=== PATIENT | female | born 1960 | race Caucasian/White ===

== ENCOUNTER 2017-11-25 13:57 | Emergency (ER) | payer MEDICAID ==
[~2017-11-25] VITALS: Ht 160 cm; Wt 92.8 kg
[~2017-11-25 13:57] MED LIST: ACET325T21 PO; ALBU6.7H IH; FAMO-79 PO; FLUT16SP NAS; GUAI-103 PO; LEVO750T26 PO; LORA-446 PO; NAPR-685 PO; NICO-486 TD; PRED10TA14 PO; TIOT18CA INH
[2017-11-25 14:02] VITALS: BP 131/75
[2017-11-25 15:28] LABS: MICROSCOPIC INDICATED
[2017-11-25 16:03] LABS: CULTURE INDICATED? NO
== END 2017-11-25 16:10 | disposition home or self-care (01) ==
LOC: ED 16:00
DX: L20.9 Atopic dermatitis, unspecified (principal); J44.9 Chronic obstructive pulmonary disease, unspecified
CPT/HCPCS: 81001; 99283

== ENCOUNTER 2018-05-05 10:45 | Emergency (ER) | payer MEDICAID ==
[~2018-05-05] VITALS: Ht 160 cm; Wt 84.0 kg
[2018-05-05] MEDS ORDERED: ALBUTEROL/IPRATROPIUM 2.5MG/0.5MG, 3 ML NPPB ONE (11:30)
[2018-05-05] MEDS ORDERED: methylPREDNISolone SOD SUCC 125 MG/2 ML IVP ONE (11:30)
[2018-05-05 11:58] LABS: BASOPHILS # (AUTO) 0.03 x10^3/uL (0-0.1); BASOPHILS % (AUTO) 0 % (0-1); EOSINOPHILS # (AUTO) 0.03 x10^3/uL (0-0.4); EOSINOPHILS % (AUTO) 0 % (1-7); LYMPHOCYTES # (AUTO) 1.77 x10^3/uL (1-3.4); LYMPHOCYTES % (AUTO) 21 % (22-44); MD NO; MEAN CORPUSCULAR HEMOGLOBIN 31.4 pg (27.0-34.8); MEAN CORPUSCULAR HGB CONC 33.5 g/dL (32.4-35.8); MEAN CORPUSCULAR VOLUME 93.8 fL (80-100); MEAN PLATELET VOLUME 7.9 fL (7.4-10.4); MONOCYTES # (AUTO) 0.38 x10^3/uL (0.2-0.8); MONOCYTES % (AUTO) 5 % (2-9); NEUTROPHILS # (AUTO) 6.31 x10^3/uL (1.8-6.8); NEUTROPHILS % (AUTO) 74 % (42-75); PLATELET COUNT 194 x10^3/uL (130-400); RED BLOOD COUNT 4.15 x10^6/uL (3.82-5.3); RED CELL DISTRIBUTION WIDTH 14.8 % (9.6-15.2)
[2018-05-05] MEDS ORDERED: methylPREDNISolone SOD SUCC 125 MG/2 ML ONE (12:03)
[2018-05-05 12:10] LABS: ALBUMIN 3.4 g/dL (3.4-5.0); ANION GAP 2 mmol/L (5-15); CALCIUM 8.2 mg/dL (8.5-10.1); CHLORIDE 108 mmol/L (98-107); CREATININE 0.52 mg/dL (0.55-1.02)
[2018-05-05 12:14] LABS: ALANINE AMINOTRANSFERASE 27 U/L (12-78); ALKALINE PHOSPHATASE 68 U/L (45-117); BILIRUBIN,TOTAL 0.4 mg/dL (0.2-1.0); TOTAL PROTEIN 6.6 g/dL (6.4-8.2); TROPONIN I < 0.015 ng/mL (0.000-0.045)
[2018-05-05] MEDS ORDERED: GABAPENTIN (12:26)
[2018-05-05] MEDS ORDERED: morphine SULFATE 10 MG/ML, 1ML IVPush ONE (12:30)
[2018-05-05] MEDS ORDERED: IBUPROFEN 600 MG TABLET ONE (13:26)
[2018-05-05 13:27] VITALS: BP 111/48
[2018-05-05] MEDS ORDERED: IBUPROFEN 200 MG TABLET PO ONE (13:30)
== END 2018-05-05 14:08 | disposition home or self-care (01) ==
LOC: ED 13:30
DX: J15.9 Unspecified bacterial pneumonia (principal); F11.20 Opioid dependence, uncomplicated; F17.210 Nicotine dependence, cigarettes, uncomplicated; J44.9 Chronic obstructive pulmonary disease, unspecified
CPT/HCPCS: 36415; 71045; 80053; 84484; 85025; 93005; 94640; 96374; 99284; 99406; J2930; J7620

== ENCOUNTER 2018-08-07 11:47 | Emergency (ER) | payer MEDICAID ==
[~2018-08-07] VITALS: Ht 160 cm; Wt 77.5 kg
[~2018-08-07 11:47] MED LIST changes: +GABAPENTIN
[2018-08-07 12:03] VITALS: BP 106/74
[2018-08-07] MEDS ORDERED: ALBUTEROL/IPRATROPIUM 2.5MG/0.5MG, 3 ML ONE (12:39)
[2018-08-07] MEDS: ALBUTEROL/IPRATROPIUM 2.5MG/0.5MG, 3 ML NPPB SCH ×2 (12:43→12:45)
--- NOTE | 2018-08-07 13:25 | NUR ---
PT ASKING NUMEROUS TIMES ABOUT HOW LONG THIS IS GOING TO TAKE. PT EDUCATED ON IMAGING RESULTS THAT ARE NOT IN. PT STATES "I HAVE BEEN IN THIS ROOM FOR TOO LONG." PT EDUCATED THAT SHE CAN LEAVE AMA BUT WILL NOT FIND THE ANSWERS SHE CAME FOR. PT IS OBSERVED PACING THE ROOM AND COMING INTO THE HALLWAY MULTIPLE TIMES. PT REDIRECTED BACK TO ROOM. PT EDUCATED AGAIN THAT WE ARE AWAITING RESULTS AND TO PLEASE BE PATIENT.
[2018-08-07 14:11] LABS: BASOPHILS # (AUTO) 0.05 x10^3/uL (0-0.1); BASOPHILS % (AUTO) 1 % (0-1); EOSINOPHILS # (AUTO) 0.02 x10^3/uL (0-0.4); EOSINOPHILS % (AUTO) 0 % (1-7); LYMPHOCYTES # (AUTO) 3.29 x10^3/uL (1-3.4); LYMPHOCYTES % (AUTO) 32 % (22-44); MD NO; MEAN CORPUSCULAR HEMOGLOBIN 30.9 pg (27.0-34.8); MEAN CORPUSCULAR VOLUME 93.8 fL (80-100); MEAN PLATELET VOLUME 7.7 fL (7.4-10.4); MONOCYTES # (AUTO) 0.68 x10^3/uL (0.2-0.8); MONOCYTES % (AUTO) 7 % (2-9); NEUTROPHILS # (AUTO) 6.13 x10^3/uL (1.8-6.8); NEUTROPHILS % (AUTO) 60 % (42-75); PLATELET COUNT 228 x10^3/uL (130-400); RED BLOOD COUNT 4.82 x10^6/uL (3.82-5.3); RED CELL DISTRIBUTION WIDTH 14.4 % (9.6-15.2)
[2018-08-07 14:22] LABS: ALBUMIN 3.7 g/dL (3.4-5.0); ANION GAP 4 mmol/L (5-15); CALCIUM 8.9 mg/dL (8.5-10.1); CHLORIDE 107 mmol/L (98-107); CREATININE 0.69 mg/dL (0.55-1.02)
--- NOTE | 2018-08-07 15:17 | NUR ---
SPOKE WITH CT. INFORMED SETTING UP FOR CT NOW
[2018-08-07] MEDS ORDERED: OMNIPAQUE 350 MG/ML, 75ML BOTTLE ONE (15:43)
== END 2018-08-07 16:26 | disposition home or self-care (01) ==
LOC: ED 16:20
DX: J44.9 Chronic obstructive pulmonary disease, unspecified (principal); J20.9 Acute bronchitis, unspecified; D35.01 Benign neoplasm of right adrenal gland; Z72.9 Problem related to lifestyle, unspecified
CPT/HCPCS: 36415; 71046; 71260; 80048; 82040; 85025; 93005; 94640; 99284; J7512; J7620; Q9967

== ENCOUNTER 2018-09-05 05:18 | Emergency (ER) | payer MEDICAID ==
[~2018-09-05] VITALS: Ht 160 cm; Wt 75.9 kg
[2018-09-05 07:38] VITALS: BP 111/53
--- NOTE | 2018-09-05 07:38 | NUR ---
CHECKED BS 81 PT STATED IT WAS LOW. GIVEN MEAL. PT READY FOR DC. AMBULATORY
== END 2018-09-05 07:41 | disposition home or self-care (01) ==
LOC: ED 06:20
DX: S22.32XA Fracture of one rib, left side, initial encounter for closed fracture (principal); J44.9 Chronic obstructive pulmonary disease, unspecified; Y04.8XXA Assault by other bodily force, initial encounter; Y93.89 Activity, other specified; Y92.009 Unspecified place in unspecified non-institutional (private) residence as the place of occurrence of the external cause; Y99.8 Other external cause status
CPT/HCPCS: 82962; 99283

== ENCOUNTER 2018-09-11 01:44 | Emergency (ER) | payer MEDICAID ==
[~2018-09-11] VITALS: Ht 160 cm; Wt 76.4 kg
[2018-09-11] MEDS ORDERED: ALBUTEROL/IPRATROPIUM 2.5MG/0.5MG, 3 ML ONE (02:23)
[2018-09-11] MEDS ORDERED: KETOROLAC 30 MG/1 ML IM ONE (02:30)
[2018-09-11] MEDS ORDERED: ALBUTEROL/IPRATROPIUM 2.5MG/0.5MG, 3 ML NPPB ONE (02:30)
--- NOTE | 2018-09-11 02:30 | NUR ---
DR. VILLARREAL IN TO EVAL PT. AND DISCUSS FURTHER POC; [place] HAD BEEN IN EARLIER. PT. WAS OUT OF ROOM FOR IMAGING WHEN THIS RN ATTEMPTED TO ASSESS PT.
[2018-09-11] MEDS ORDERED: KETOROLAC 30 MG/1 ML ONE (02:36)
--- NOTE | 2018-09-11 02:47 | NUR ---
PT. HAS BEEN MEDICATED PER AUG. TO X-RAY VIA [facility]. PT. HAD PREVIOUSLY BEEN IN BR WHEN THIS RN WENT IN TO ASSESS NOT IMAGING.
[2018-09-11] MEDS ORDERED: DEXAMETHASONE 4 MG TABLET ONE (03:15)
--- NOTE | 2018-09-11 03:27 | NUR ---
PT. MEDICATED PER AUG. IS TEACHING COMPLETED AND PT. ABLE TO DEMONSTRATE PROPER USE OF THIS. [place] IN TO DISCUSS RESULTS WITH PT.
[2018-09-11] MEDS ORDERED: DEXAMETHASONE 4 MG TABLET PO ONE (03:30)
[2018-09-11 03:45] VITALS: BP 113/70
== END 2018-09-11 03:50 | disposition home or self-care (01) ==
LOC: ED 03:44
DX: S22.32XA Fracture of one rib, left side, initial encounter for closed fracture (principal); J44.9 Chronic obstructive pulmonary disease, unspecified; F17.200 Nicotine dependence, unspecified, uncomplicated; G89.29 Other chronic pain; Y04.0XXA Assault by unarmed brawl or fight, initial encounter; Y93.89 Activity, other specified; Y92.89 Other specified places as the place of occurrence of the external cause; Y99.8 Other external cause status
CPT/HCPCS: 71046; 96372; 99283; J1885; J7620

== ENCOUNTER 2018-09-17 07:48 | Emergency (ER) | payer MEDICAID ==
[~2018-09-17] VITALS: Ht 160 cm; Wt 74.0 kg
[2018-09-17 07:52] VITALS: BP 138/80
[2018-09-17] MEDS ORDERED: KETOROLAC 30 MG/1 ML IM ONE (08:30)
--- NOTE | 2018-09-17 08:35 | NUR ---
First contact w/ pt: while checking in ambulance across the welch, pt began screaming "nurse, [facility]!" Responded to room & pt stated, " I know you heard me, I've been asking for help for an hour!" Asked how I could help her & she stated she needed help up. I asked if she wanted to sit up in bed or help to bathroom. Replied, "What do you think you fucking bitch?". I told pt that it is unacceptable to yell or curse at me. She stated she was being ignored & nobody here cared about her. Assured her we care but have to also attend to other patients. Sat up nearly unassisted & walked unassisted to restroom.
[2018-09-17] MEDS ORDERED: KETOROLAC 30 MG/1 ML ONE (08:43)
--- NOTE | 2018-09-17 08:52 | NUR ---
PHILIPPE RN NOTE: PATIENT WOULD LIKE TO HAVE MEDICATION ADMIN HERE FOR CONSTIPATION. MD CHAVEZ AWARE AND MAG CITRATE TO GIVEN PRIOR TO DISCHARGE
[2018-09-17] MEDS ORDERED: MAGNESIUM CITRATE 300ML ORAL SOL PO ONE (09:00)
[2018-09-17] MEDS ORDERED: MAGNESIUM CITRATE 300ML ORAL SOL ONE ×2 (09:03→09:27)
--- NOTE | 2018-09-17 09:49 | NUR ---
This nurse in to discharge with security standby due to aggressive behavior from patient.
== END 2018-09-17 09:51 | disposition home or self-care (01) ==
LOC: ED 09:28
DX: S22.32XA Fracture of one rib, left side, initial encounter for closed fracture (principal); J44.9 Chronic obstructive pulmonary disease, unspecified; X58.XXXA Exposure to other specified factors, initial encounter; Y93.89 Activity, other specified; Y92.89 Other specified places as the place of occurrence of the external cause; Y99.8 Other external cause status
CPT/HCPCS: 96372; 99283; J1885

== ENCOUNTER 2018-09-21 19:40 | Emergency (ER) | payer MEDICAID ==
[~2018-09-21] VITALS: Ht 160 cm; Wt 76.3 kg
[2018-09-21 19:48] VITALS: BP 125/74
--- NOTE | 2018-09-21 19:56 | NUR ---
Pt ambulated to room with EDT.
[2018-09-21] MEDS ORDERED: LIDOCAINE-MPF 1%, 5ML INFIL ONE (20:00)
--- NOTE | 2018-09-21 20:08 | NUR ---
Pt back to room from imaging.
[2018-09-21] MEDS ORDERED: LIDOCAINE-MPF 1%, 5ML ONE (20:13)
--- NOTE | 2018-09-21 20:14 | NUR ---
Lab at bedside.
--- NOTE | 2018-09-21 20:17 | NUR ---
Dr. Angulo at bedside to evaluate pt. Pt c/o back spasms "mostly at night," abdominal pain/constipation, and right middle finger pain/swelling.
[2018-09-21 20:21] LABS: BASOPHILS % (AUTO) 1 % (0-1); EOSINOPHILS # (AUTO) 0.43 x10^3/uL (0-0.4); EOSINOPHILS % (AUTO) 4 % (1-7); LYMPHOCYTES # (AUTO) 3.58 x10^3/uL (1-3.4); LYMPHOCYTES % (AUTO) 33 % (22-44); MD NO; MEAN CORPUSCULAR HEMOGLOBIN 32.1 pg (27.0-34.8); MEAN CORPUSCULAR VOLUME 94.5 fL (80-100); MEAN PLATELET VOLUME 7.1 fL (7.4-10.4); MONOCYTES # (AUTO) 0.73 x10^3/uL (0.2-0.8); MONOCYTES % (AUTO) 7 % (2-9); NEUTROPHILS # (AUTO) 5.94 x10^3/uL (1.8-6.8); NEUTROPHILS % (AUTO) 55 % (42-75); PLATELET COUNT 265 x10^3/uL (130-400); RED BLOOD COUNT 4.19 x10^6/uL (3.82-5.3); RED CELL DISTRIBUTION WIDTH 14.7 % (9.6-15.2)
--- NOTE | 2018-09-21 20:22 | NUR ---
Pt ambulated to bathroom, no assistance required. Urine sample requested after pt educated on proper technique for clean catch sample.
[2018-09-21 20:33] LABS: ALANINE AMINOTRANSFERASE 22 U/L (12-78); ALBUMIN 3.6 g/dL (3.4-5.0); ANION GAP 4 mmol/L (5-15); CALCIUM 8.7 mg/dL (8.5-10.1); CHLORIDE 108 mmol/L (98-107); CREATININE 0.63 mg/dL (0.55-1.02)
[2018-09-21] MEDS ORDERED: CYCLOBENZAPRINE 10 MG TABLET PO STA (20:34)
[2018-09-21 20:35] LABS: ALKALINE PHOSPHATASE 89 U/L (45-117); BILIRUBIN,TOTAL 0.3 mg/dL (0.2-1.0); TOTAL PROTEIN 6.6 g/dL (6.4-8.2)
[2018-09-21] MEDS ORDERED: KETOROLAC 30 MG/1 ML ONE (20:41)
[2018-09-21] MEDS ORDERED: CYCLOBENZAPRINE 10 MG TABLET ONE (20:41)
[2018-09-21 20:44] LABS: MICROSCOPIC AUTO
[2018-09-21 20:46] LABS: CULTURE INDICATED? NO
--- NOTE | 2018-09-21 20:52 | NUR ---
PT MEDICATED ORDERED. MIKAEL PAC AT BEDSIDE FOR I+D.
[2018-09-21] MEDS ORDERED: KETOROLAC 30 MG/1 ML IM ONE (21:00)
--- NOTE | 2018-09-21 21:12 | NUR ---
Dr. Angulo at bedside to discuss ED findings and POC.
== END 2018-09-21 21:54 | disposition home or self-care (01) ==
LOC: ED 20:52
DX: S22.32XA Fracture of one rib, left side, initial encounter for closed fracture (principal); L03.011 Cellulitis of right finger; K59.00 Constipation, unspecified; E11.9 Type 2 diabetes mellitus without complications; J44.9 Chronic obstructive pulmonary disease, unspecified; X58.XXXA Exposure to other specified factors, initial encounter; Y93.89 Activity, other specified; Y92.89 Other specified places as the place of occurrence of the external cause; Y99.8 Other external cause status
CPT/HCPCS: 10060; 36415; 74021; 80053; 81001; 85025; 96372; 99284; J1885

== ENCOUNTER → 2018-10-01 | Outpatient (CLI) | payer MEDICAID ==
[~2018-10-01] MED LIST changes: +FENTANYL PF 100 MCG/2ML ONE; +FLUMAZENIL 0.1 MG/1 ML, 5ML ONE; +MIDAZOLAM 1 MG/ML, 5ML ONE; +NALOXONE 1 MG/ML, 2ML ONE
== END | disposition home or self-care (01) ==
LOC: RAD 13:46
PROVIDERS: ATTEND Orthopaedic Surgery
DX: M75.41 Impingement syndrome of right shoulder (principal); M75.51 Bursitis of right shoulder
CPT/HCPCS: 73221; 99156; 99157; J2250; J3010; J2310

== ENCOUNTER 2018-10-16 02:01 | Emergency (ER) | payer MEDICAID ==
[~2018-10-16] VITALS: Ht 160 cm; Wt 75.6 kg
[~2018-10-16 02:01] MED LIST changes: -FENTANYL PF 100 MCG/2ML ONE; -FLUMAZENIL 0.1 MG/1 ML, 5ML ONE; -MIDAZOLAM 1 MG/ML, 5ML ONE; -NALOXONE 1 MG/ML, 2ML ONE
--- NOTE | 2018-10-16 02:33 | NUR ---
pt called to room from lobby
[2018-10-16 02:34] VITALS: BP 162/110
--- NOTE | 2018-10-16 02:35 | NUR ---
Victor M hernández in ED - 10/16/18 at [address] MUNGUIA AT BED SIDE GIVEN POC WILL GIVE BP MED THEN PT WILL FOLLOW UP PCP FOR FURTHER CHECK UP NO BLEEDING NOTED
--- NOTE | 2018-10-16 02:40 | NUR ---
BACK PAIN CANT SLEEP TONIGHT PER TRIAGE NOTE MAGNOLIA BERNARDO AT BED SIDE
[2018-10-16] MEDS ORDERED: KETOROLAC 30 MG/1 ML ONE (02:49)
[2018-10-16] MEDS ORDERED: METHOCARBAMOL 750 MG TABLET ONE (02:49)
[2018-10-16] MEDS ORDERED: KETOROLAC 30 MG/1 ML IM ONE (03:00)
[2018-10-16] MEDS ORDERED: METHOCARBAMOL 750 MG TABLET PO ONE (03:00)
== END 2018-10-16 03:43 | disposition home or self-care (01) ==
LOC: ED 03:00
DX: M54.6 Pain in thoracic spine (principal); Z72.6 Gambling and betting; E11.9 Type 2 diabetes mellitus without complications; J44.9 Chronic obstructive pulmonary disease, unspecified
CPT/HCPCS: 96372; 99283; J1885

== ENCOUNTER 2018-11-08 10:21 | Emergency (ER) | payer MEDICAID ==
[~2018-11-08] VITALS: Ht 160 cm; Wt 75.1 kg
--- NOTE | 2018-11-08 11:13 | NUR ---
PT ASSISTED TO BR, URINE COLLECTED/ORDERED AND SENT TO LAB. PT ASSISTED IN GETTING INTO GOWN, WARM BLANKET PROVIDED X 2. CALL LIGHT WITHIN REACH.
[2018-11-08 11:35] LABS: MICROSCOPIC NOT IND
[2018-11-08 11:51] LABS: CULTURE INDICATED? NO
[2018-11-08 12:04] LABS: BASOPHILS # (AUTO) 0.05 x10^3/uL (0-0.1); BASOPHILS % (AUTO) 1 % (0-1); EOSINOPHILS % (AUTO) 1 % (1-7); LYMPHOCYTES # (AUTO) 2.79 x10^3/uL (1-3.4); LYMPHOCYTES % (AUTO) 36 % (22-44); MD NO; MEAN CORPUSCULAR HEMOGLOBIN 32.3 pg (27.0-34.8); MEAN CORPUSCULAR HGB CONC 33.5 g/dL (32.4-35.8); MEAN CORPUSCULAR VOLUME 96.4 fL (80-100); MEAN PLATELET VOLUME 7.8 fL (7.4-10.4); MONOCYTES # (AUTO) 0.37 x10^3/uL (0.2-0.8); MONOCYTES % (AUTO) 5 % (2-9); NEUTROPHILS # (AUTO) 4.38 x10^3/uL (1.8-6.8); NEUTROPHILS % (AUTO) 57 % (42-75); PLATELET COUNT 215 x10^3/uL (130-400); RED BLOOD COUNT 4.32 x10^6/uL (3.82-5.3); RED CELL DISTRIBUTION WIDTH 14.2 % (9.6-15.2)
--- NOTE | 2018-11-08 12:07 | NUR ---
PT ASSISTED WITH REPOSITIONING. XR RESULTS REVIEWED WITH PT, AWAITING LAB RESULTS STILL. PT REQUESTING PAIN MEDICATION, ERP NOTIFIED.
[2018-11-08] MEDS ORDERED: KETOROLAC 30 MG/1 ML ONE (12:14)
[2018-11-08 12:15] LABS: ALBUMIN 3.4 g/dL (3.4-5.0); ANION GAP 5 mmol/L (5-15); CALCIUM 8.9 mg/dL (8.5-10.1); CHLORIDE 110 mmol/L (98-107)
[2018-11-08 12:20] LABS: ALANINE AMINOTRANSFERASE 20 U/L (12-78); ALKALINE PHOSPHATASE 96 U/L (45-117); BILIRUBIN,TOTAL 0.4 mg/dL (0.2-1.0); CREATININE 0.57 mg/dL (0.55-1.02); TOTAL PROTEIN 6.7 g/dL (6.4-8.2)
--- NOTE | 2018-11-08 12:20 | NUR ---
PT GIVEN TORADOL PER ERP ORDER. AFTER INJECTION, PT SCREAMED AND GRABBED THIS RN'S WRIST HARD PRESSING AGAINST HER BUTTOCK YELLING, "RUB IT IN, DO IT NOW". THIS RN ABLE TO EXTRICATE ARM FROM PT'S HOLD AND PT TOLD TO NOT TOUCH RN AGAIN. PT ANGRY, SWEARING AT THIS RN, STATING "PUT THE RAIL DOWN, I'M GETTING THE FUCK OUT OF HERE". RAILING DOWN, PT APPEARS TO BE GETTING DRESSED. SPAR CAP BEVELER NOTIFIED.
[2018-11-08] MEDS ORDERED: KETOROLAC 30 MG/1 ML IM ONE (12:30)
[2018-11-08 12:45] VITALS: BP 132/78
--- NOTE | 2018-11-08 12:45 | NUR ---
DISCHARGE INSTRUCTIONS PRINTED BY ERP. PT LEFT ED PRIOR TO RECEIVING WRITTEN INSTRUCTS.
== END 2018-11-08 12:48 | disposition home or self-care (01) ==
LOC: ED 12:31
DX: R10.84 Generalized abdominal pain (principal); K59.00 Constipation, unspecified; E11.9 Type 2 diabetes mellitus without complications; J44.9 Chronic obstructive pulmonary disease, unspecified; F17.200 Nicotine dependence, unspecified, uncomplicated
CPT/HCPCS: 36415; 71101; 74021; 80053; 81003; 83690; 85025; 96372; 99284; J1885

== ENCOUNTER 2018-11-21 09:49 | Outpatient (CLI) | payer MEDICAID ==
[~2018-11-21 09:49] MED LIST changes: -FLUT16SP NAS; +FLUT16SP24 NAS
== END 2018-11-21 23:59 | disposition home or self-care (01) ==
LOC: CFH 09:49
PROVIDERS: ATTEND Physical Medicine & Rehabilitation
DX: M48.02 Spinal stenosis, cervical region (principal)
CPT/HCPCS: 72141

== ENCOUNTER 2019-01-15 18:52 | Emergency (ER) | payer MEDICAID ==
[~2019-01-15] VITALS: Ht 160 cm; Wt 74.3 kg
[~2019-01-15 18:52] MED LIST changes: -ALBU6.7H IH; +ALBU6.7H8 IH
[2019-01-15 18:55] VITALS: BP 120/81
--- NOTE | 2019-01-15 19:49 | NUR ---
NO ANSWER AT 1950
--- NOTE | 2019-01-15 20:20 | NUR ---
NILx2
[2019-01-20] MEDS ORDERED: MELO15TA24 PO (11:34)
[2019-01-20] MEDS ORDERED: MIRT7.5T8 PO (11:34)
[2019-01-20] MEDS ORDERED: CYAN500T54 PO (11:34)
[2019-01-20] MEDS ORDERED: diazepam PO (11:34)
== END 2019-01-15 20:28 | disposition left against medical advice (07) ==
LOC: ED 20:22
DX: R10.9 Unspecified abdominal pain (principal); Z53.21 Procedure and treatment not carried out due to patient leaving prior to being seen by health care provider

== ENCOUNTER 2019-01-20 11:01 | Emergency (ER) | payer MEDICAID ==
[~2019-01-20] VITALS: Ht 160 cm; Wt 75.0 kg
[2019-01-20 12:55] VITALS: BP 122/71
== END 2019-01-20 14:06 | disposition home or self-care (01) ==
LOC: ED 12:51
DX: E86.0 Dehydration (principal); M79.18 Myalgia, other site; R07.89 Other chest pain; J44.9 Chronic obstructive pulmonary disease, unspecified; E11.9 Type 2 diabetes mellitus without complications; Z72.9 Problem related to lifestyle, unspecified; F17.200 Nicotine dependence, unspecified, uncomplicated
CPT/HCPCS: 36415; 71045; 80053; 81003; 82550; 83735; 84443; 84484; 85025; 85379; 85651; 86038; 93005; 96360; 99284; J7030

== ENCOUNTER 2019-04-14 18:39 | Emergency (ER) | payer MEDICAID ==
[~2019-04-14] VITALS: Ht 160 cm; Wt 72.0 kg
[~2019-04-14 18:39] MED LIST changes: +CYAN500T54 PO; +MELO15TA24 PO; +MIRT7.5T8 PO; +diazepam PO
[2019-04-14 18:44] VITALS: BP 103/57
[2019-04-14] MEDS ORDERED: IBUPROFEN 200 MG TABLET ONE (20:13)
[2019-04-14] MEDS ORDERED: IBUPROFEN 200 MG TABLET PO ONE (20:30)
[2019-04-14] MEDS ORDERED: NEOSPORIN OINT. PKT 1 PACKET ONE (20:33)
== END 2019-04-14 20:46 | disposition home or self-care (01) ==
LOC: ED 20:40
DX: L03.113 Cellulitis of right upper limb (principal); J44.9 Chronic obstructive pulmonary disease, unspecified; Z72.9 Problem related to lifestyle, unspecified; M79.671 Pain in right foot; F17.200 Nicotine dependence, unspecified, uncomplicated
CPT/HCPCS: 99283

== ENCOUNTER 2019-04-29 01:47 | Emergency (ER) | payer MEDICAID ==
[~2019-04-29] VITALS: Ht 160 cm; Wt 74.5 kg
--- NOTE | 2019-04-29 01:54 | NUR ---
THE PT IS REQUESTING "SOMETHING TO EAT AND DRINK".
[2019-04-29 02:16] LABS: RAPID INFLUENZA A Negative (Negative); RAPID INFLUENZA B Negative (Negative)
[2019-04-29] MEDS ORDERED: AZITHROMYCIN 250 MG TABLET ONE (02:49)
[2019-04-29] MEDS ORDERED: AZITHROMYCIN 250 MG TABLET PO ONE (03:00)
[2019-04-29] MEDS ORDERED: AZITHROMYCIN 500 MG TABLET PO ONE (03:00)
[2019-04-29 03:07] VITALS: BP 141/87
--- NOTE | 2019-04-29 03:09 | NUR ---
DICKSON OUT OF THE ED W/O DIFF. TAXI VOUCHER TO THE PT.
== END 2019-04-29 03:11 | disposition home or self-care (01) ==
LOC: ED 03:05
DX: J18.9 Pneumonia, unspecified organism (principal); J44.9 Chronic obstructive pulmonary disease, unspecified; M79.7 Fibromyalgia; Z53.31 Laparoscopic surgical procedure converted to open procedure
CPT/HCPCS: 71046; 87400; 99284

== ENCOUNTER 2019-05-29 02:25 | Emergency (ER) | payer MEDICAID ==
[~2019-05-29] VITALS: Ht 160 cm; Wt 74.0 kg
[2019-05-29] MEDS ORDERED: ACETAMINOPHEN 500 MG TABLET ONE (02:45)
[2019-05-29 02:54] LABS: BASOPHILS # (AUTO) 0.04 x10^3/uL (0-0.1); BASOPHILS % (AUTO) 0 % (0-1); EOSINOPHILS # (AUTO) 0.08 x10^3/uL (0-0.4); EOSINOPHILS % (AUTO) 1 % (1-7); LYMPHOCYTES # (AUTO) 2.36 x10^3/uL (1-3.4); LYMPHOCYTES % (AUTO) 27 % (22-44); MD NO; MEAN CORPUSCULAR HEMOGLOBIN 32.2 pg (27.0-34.8); MEAN CORPUSCULAR HGB CONC 33.1 g/dL (32.4-35.8); MEAN CORPUSCULAR VOLUME 97.4 fL (80-100); MEAN PLATELET VOLUME 7.6 fL (7.4-10.4); MONOCYTES # (AUTO) 0.51 x10^3/uL (0.2-0.8); MONOCYTES % (AUTO) 6 % (2-9); NEUTROPHILS # (AUTO) 5.61 x10^3/uL (1.8-6.8); NEUTROPHILS % (AUTO) 65 % (42-75); PLATELET COUNT 223 x10^3/uL (130-400); RED BLOOD COUNT 4.28 x10^6/uL (3.82-5.3); RED CELL DISTRIBUTION WIDTH 14.2 % (9.6-15.2)
[2019-05-29] MEDS ORDERED: ALBUTEROL/IPRATROPIUM 2.5MG/0.5MG, 3 ML NPPB ONE (03:00)
[2019-05-29] MEDS ORDERED: ALBUTEROL SULFATE 2.5MG/0.5ML NPPB ONE (03:00)
[2019-05-29] MEDS ORDERED: ACETAMINOPHEN 500 MG TABLET PO ONE (03:00)
[2019-05-29 03:03] LABS: ALBUMIN 3.2 g/dL (3.4-5.0); ANION GAP 3 mmol/L (5-15); CALCIUM 8.7 mg/dL (8.5-10.1); CHLORIDE 109 mmol/L (98-107); CREATININE 0.59 mg/dL (0.55-1.02)
[2019-05-29 03:05] LABS: CREATINE KINASE, TOTAL 96 U/L (26-192)
[2019-05-29] MEDS ORDERED: ALBUTEROL SULFATE 2.5 MG/3 ML NPPB ONE (04:00)
[2019-05-29] MEDS ORDERED: methylPREDNISolone SOD SUCC 125 MG/2 ML IVPush SCH (04:00)
[2019-05-29] MEDS ORDERED: AZITHROMYCIN 500 MG in SODIUM CHLORIDE 0.9% 250 ML IV SCH (04:00)
[2019-05-29] MEDS ORDERED: ALBUTEROL/IPRATROPIUM 2.5MG/0.5MG, 3 ML NPPB SCH (04:00)
[2019-05-29] MEDS ORDERED: ONDANSETRON 2MG/ML, 2ML IVPush PRN (04:00)
[2019-05-29] MEDS ORDERED: methylPREDNISolone SOD SUCC 125 MG/2 ML ONE (04:12)
[2019-05-29] MEDS ORDERED: NAPR-685 PO (05:06)
[2019-05-29 06:31] VITALS: BP 105/60
--- NOTE | 2019-05-29 06:57 | NUR ---
RECEIVED REPORT FROM JARRED. PT LAYING ON GURNEY RESTING CALMLY & COMFORTABLY, RESPONDS APPROP TO STAFF, NAD, NO NEEDS AT THIS TIME, CALL LIGHT WITHIN REACH.
[2019-05-29 07:55] LABS: RAPID INFLUENZA A Negative (Negative); RAPID INFLUENZA B Negative (Negative)
--- NOTE | 2019-05-29 08:20 | NUR ---
PT BECAME UPSET WHEN AWAKENED FOR OXYMASK PLACEMENT (PT DESATS DURING SLEEP WITH NC IN PLACE), BEGAN YELLING "I WANT COFFEE DAMN IT!", THIS RN EXPLAINED DIET RESTRICTIONS (CARDIAC) & OPTION FOR DECAF, PT YELLED "FUCK THAT! I DON'T FUCKING WANT DECAF!", PT GOT UP, REMOVED MONITORS, PUT ON HER STREET CLOTHES & DEMANDED PIV REMOVAL. METAL BED ASSEMBLER, DR SWARTZ & DR RAZA NOTIFIED OF PT BEHAVIOR/DEMANDS. PIV REMOVED, PT SIGNED AMA FORM, AMBULATED STEADILY TO EXIT.
[2019-05-29] MEDS ORDERED: methylPREDNISolone SOD SUCC 40 MG/ML IV SCH (12:00)
== END 2019-05-29 08:27 | disposition left against medical advice (07) ==
LOC: ED 03:11 → EDIP 04:00 → UNDOADMIN 04:00 → ED 08:27
DX: J44.1 Chronic obstructive pulmonary disease with (acute) exacerbation (principal); R09.02 Hypoxemia; F17.210 Nicotine dependence, cigarettes, uncomplicated
CPT/HCPCS: 36415; 71045; 80048; 82040; 82550; 84145; 85025; 87400; 94640; 96365; 96375; 99284; J0456; J2930; J7050; J7611; J7620